=== PATIENT | male | born 1965 | race Caucasian/White ===

== ENCOUNTER → 2020-06-03 09:38 | Outpatient (CLI) | payer OTHER, MEDICAID, SELFPAY ==
[2020-06-03 11:06] LABS: BUN Creatinine Ratio 26.3 (6-22); Blood Urea Nitrogen 20 mg/dL (9-20); Calcium 9.7 mg/dL (8.4-10.2); Carbon Dioxide 31 mmol/L (22-32); Chloride 100 mmol/L (98-107); Estimated Glomerular Filt Rate > 60.0 mL/min (>60); Glucose 101 mg/dL (70-100); HEMOLYSIS < 15 (0-50); Potassium 4.2 mmol/L (3.4-5.1); Sodium 138 mmol/L (137-145)
== END ==
PROVIDERS: Referring Provider Registered Nurse; Visit Provider Registered Nurse
DX: I25.10 Atherosclerotic heart disease of native coronary artery without angina pectoris (principal); Z95.5 Presence of coronary angioplasty implant and graft; Z95.810 Presence of automatic (implantable) cardiac defibrillator; I48.91 Unspecified atrial fibrillation; I25.5 Ischemic cardiomyopathy
CPT/HCPCS: 36415; 80048

== ENCOUNTER → 2021-12-18 07:59 | Outpatient (CLI) | payer OTHER, MEDICAID, SELFPAY ==
[2021-12-18 10:07] LABS: BUN Creatinine Ratio 19.3 (6-22); Blood Urea Nitrogen 17 mg/dL (9-20); Calcium 9.1 mg/dL (8.4-10.2); Carbon Dioxide 25 mmol/L (22-32); Chloride 101 mmol/L (98-107); Cholesterol 160 mg/dL (140-199); Estimated Glomerular Filt Rate > 60 mL/min (>60); Glucose 111 mg/dL (70-100); HDL Cholesterol 38 mg/dL (40-60); HEMOLYSIS < 15 (0-50); LDL Cholesterol Calculated 90 mg/dL (<100); Potassium 4.5 mmol/L (3.4-5.1); Sodium 139 mmol/L (137-145); Triglycerides 162 mg/dL (35-150)
[2021-12-18 10:26] LABS: Free T4, Direct Thyroxine 1.15 ng/dL (0.78-2.19)
[2021-12-18 10:39] LABS: Thyroid Stimulating Hormone 1.69 uIU/mL (0.47-4.68)
== END ==
PROVIDERS: Referring Provider Nurse Practitioner Family; Visit Provider Nurse Practitioner Family
DX: I48.91 Unspecified atrial fibrillation (principal); I25.10 Atherosclerotic heart disease of native coronary artery without angina pectoris; E78.5 Hyperlipidemia, unspecified
CPT/HCPCS: 36415; 80048; 80061; 83735; 84439; 84443

== ENCOUNTER → 2022-04-27 08:11 | Outpatient (CLI) | payer OTHER, MEDICAID, SELFPAY ==
[2022-04-27 09:09] LABS: Blood Urea Nitrogen 10 mg/dL (9-20); Carbon Dioxide 25 mmol/L (22-32); Chloride 102 mmol/L (98-107); Estimated Glomerular Filt Rate > 60 mL/min (>60); Glucose 164 mg/dL (70-100); HEMOLYSIS < 15 (0-50); Magnesium 2.2 mg/dL (1.6-2.3); Potassium 4.3 mmol/L (3.4-5.1); Sodium 136 mmol/L (137-145)
== END ==
PROVIDERS: Referring Provider Physician Assistant Medical; Visit Provider Physician Assistant Medical
DX: I48.19 Other persistent atrial fibrillation (principal)
CPT/HCPCS: 36415; 80048; 83735

== ENCOUNTER 2022-10-01 01:13 | Emergency (ER) | payer OTHER, MEDICAID, SELFPAY ==
[2022-10-01 01:25] VITALS: BP 146/94; PULSE 65; RESP 18; TEMP 36.6; O2SAT 96; BMI 37.5
--- NOTE | 2022-10-01 01:34 | ED.GENADULT ---
HPI - General Adult General Chief complaint: Abdominal Pain Stated complaint: ABD PAIN Time Seen by Provider: 10/01/22 01:26 Source: patient Mode of arrival: Ambulatory History of Present Illness HPI narrative: Patient is a 49-year-old male. He does have history of prostate issues. He is on medication for this. He states he is had abdominal discomfort Off and on for the past couple weeks however for the past 4 hours he is had increasing discomfort, states he feels like he needs to have a bowel movement but is unable to. Also feels like he is having problems urinating. No vomiting but is having nausea. No fevers. No chest pain or shortness of breath. Pain is on the right side of his abdomen. Related Data Previous Rx's Medication Instructions Recorded atorvastatin 10 mg tablet (Lipitor) 10 mg PO HS #30 tabs 11/02/12 ketorolac 10 mg tablet 10 mg PO TID PRN pain 5 days #15 10/01/22 tabs Allergies Allergy/AdvReac Type Severity Reaction Status Date / Time No Known Drug Allergies Allergy Verified 10/01/22 05:16 Review of Systems Constitutional Constitutional: Reports system reviewed and no additional complaints, except as documented Cardiovascular Cardiovascular: Reports system reviewed and no additional complaints, except as documented Respiratory Respiratory: Reports system reviewed and no additional complaints, except as documented Gastrointestinal Gastrointestinal: Reports system reviewed and no additional complaints, except as documented Genitourinary Genitourinary: Reports system reviewed and no additional complaints, except as documented Integumentary/Breasts Skin/Breast: Reports system reviewed and no additional complaints, except as documented Patient History Social History Smoking Status: Never smoker Smoking Status: Never smoker alcohol intake frequency: holidays/special occasions only Substance Use Type: marijuana Exam Initial Vital Signs Initial Vital Signs: Vital Signs Temperature 98 F 10/01/22 01:25 Pulse Rate 65 10/01/22 01:25 Respiratory Rate 18 10/01/22 01:25 Blood Pressure 146/94 H 10/01/22 01:25 Pulse Oximetry 96 10/01/22 01:25 Oxygen Delivery Method Room Air 10/01/22 01:25 Const General: cooperative and No ill appearing HENMT Head: normal to inspection and normocephalic Resp Effort & Inspection: normal respiratory effort Cardio Rate: regular rate GI Inspection: normal to inspection and non-distended Palpation: soft, No firm and tender Skin General: no rashes or lesions noted Neuro General: patient alert, patient awake and moves all extremities Course Orders Ordered: ED Orders 10/01/22 01:59 CT abdomen pelvis w con Stat 10/01/22 02:02 Complete Blood Count AUTO DIFF Stat Comprehensive Metabolic Panel Stat Lipase Stat Discontinued Medications Ketorolac Tromethamine (Ketorolac 30 Mg/Ml Vial) 30 mg IV NOW ONE Stop: 10/01/22 04:45 Last Admin: 10/01/22 04:50 Dose: 30 mg Documented By: KALLIE Vital Signs Vital signs: Vital Signs - 8 hr 10/01/22 01:25 Temperature 98 F Pulse Rate 65 Respiratory Rate 18 Blood Pressure 146/94 H Pulse Oximetry 96 Oxygen Delivery Method Room Air Medical Decision Making Lab Data Lab results reviewed: Yes I reviewed the patient's lab results. 10/01/22 02:02 10/01/22 02:02 Labs: Lab Results 10/01/22 10/01/22 Range/Units 02:02 02:02 WBC 10.8 (4.5-11.0) X10^3/uL RBC 5.08 (4.5-5.9) X10^6/uL Hgb 14.3 (13.5-17.5) g/dL Hct 42.2 (41-53) % MCV 83.2 (80-100) fL MCH 28.2 (26-34) PG MCHC 33.9 (30-36) % RDW 15.1 H (11.6-14.8) % Plt Count 226 (150-400) X10^3/uL Neut % (Auto) 70.6 (50-75) % Lymph % (Auto) 17.8 L (25-40) % [place] % (Auto) 5.6 (3-14) % Eos % (Auto) 3.9 (2-4) % Baso % (Auto) 2.1 H (0-2) % Neut # (Auto) 7600 H (3130-1205) /uL Lymph # (Auto) 1900 (9205-7384) /uL [place] # (Auto) 600 (0-900) /uL Eos # (Auto) 400 (0-450) /uL Baso # (Auto) 200 H (0-100) /uL Sodium 138 (137-145) mmol/L Potassium 3.8 (3.4-5.1) mmol/L Chloride 105 (98-107) mmol/L Carbon Dioxide 24 (22-32) mmol/L BUN 22 H (9-20) mg/dL Creatinine 0.79 (0.66-1.25) mg/dL Estimated GFR > 60 (>60) mL/min BUN/Creatinine Ratio 27.8 H (6-22) Glucose 137 H (70-100) mg/dL Calcium 9.0 (8.4-10.2) mg/dL Total Bilirubin 0.5 (0.2-1.3) mg/dL AST 31 (17-59) IU/L ALT 31 (<50) IU/L Alkaline Phosphatase 110 (38-126) U/L Total Protein 7.1 (6.3-8.2) g/dL Albumin 4.1 (3.5-5.0) g/dL Globulin 3.0 (1.7-4.1) g/dL Albumin/Globulin Ratio 1.4 (1.0-2.8) Lipase 44 (23-300) U/L Urine Dip Bedside Urine Glucose Negative Bedside Urine Bilirubin + 1 Bedside Urine Ketone +/- 5 Urine Specific [place] 1.030 Bedside Urine Occult Blood +++ Bedside Urine pH 5.5 Bedside Urine Protein + 30 Bedside Urine Urobilinogen - Negative Bedside Urine Nitrite - Negative Bedside Urine Leukocytes - Negative Esterase Point of care testing: Urine Dip Bedside Urine Glucose Negative Bedside Urine Bilirubin + 1 Bedside Urine Ketone +/- 5 Urine Specific [place] 1.030 Bedside Urine Occult Blood +++ Bedside Urine pH 5.5 Bedside Urine Protein + 30 Bedside Urine Urobilinogen - Negative Bedside Urine Nitrite - Negative Bedside Urine Leukocytes - Negative Esterase Imaging Data CT scan - abdomen/pelvis: Radiologist's Impression: 7 mm obstructing calculus right UVJ with mild hydronephrosis on the right 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 Lymphoproliferative disorder can not be excluded therefore follow-up as advised MDM Narrative Medical decision making narrative: Patient states he feels much better after the Toradol. His kidney functions unremarkable. His urinalysis has blood but no other signs of infection. He is not retaining urine. CT scan shows right-sided 7 mm stone which does correspond to the side where he is having his discomfort. 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 There is no indication for emergent surgical consultation. He is already on a alpha kala because of his prostate issues. Will send home with nausea medication and pain medication. He does have a urologist that he has been in contact with and has an appointment scheduled but then does not for several weeks. Will discharge patient home with return precautions. He expressed understanding and agreement. Discharge Plan Departure Patient Disposition: Home Clinical Impression: Kidney stone on right side, Abdominal pain Instructions: Kidney Stones -- Adult, DI for Abdominal Pain-Adult Activity Restrictions/Additional Instructions: I recommend that you contact your urologist for follow-up. Continue to take all of your current medications as directed. I also recommend that you follow-up with your primary doctor. Take the medication you were given prescription for this evening as directed. Return to the emergency department for new or worsening symptoms. Prescriptions: New ketorolac 10 mg tablet 10 mg PO TID PRN (Reason: pain) 5 Days Qty: 15 0RF No Action atorvastatin [Lipitor] 10 MG tablet 10 mg PO HS Qty: 30 5RF Stand Alone Forms: Patient Portal/API
--- NOTE | 2022-10-01 01:59 | DI.CT.S_ITS ---
PROCEDURE: CT ABDOMEN PELVIS W CON INDICATIONS: Generalized abdominal pain TECHNIQUE: After the administration of oral and IV contrast, axial sections were acquired from the lung bases to the pubic symphysis. Coronal and sagittal reformats were performed. For radiation dose reduction, the following was used: automated exposure control, adjustment of mA and/or kV according to patient size. COMPARISON: [facility], , [place] ABDOMEN, 04/09/1999, 13:31. FINDINGS: Image quality: Excellent. Lung bases: Unremarkable. Small hiatal hernia. Heart: Mild cardiomegaly. There is a cardiac pacemaker. ABDOMEN: Liver: Normal in size. Mild hepatic steatosis. Gallbladder: Unremarkable. Biliary ducts: Unremarkable. Pancreas: Unremarkable. Spleen: Unremarkable. Adrenal Glands: Unremarkable. Kidneys and Ureters: There is mild right hydronephrosis and hydroureter ureter with periureteral stranding. A 7 mm stone is present at the right ureterovesical junction demonstrating CT density 958 HU. Stomach and Bowel: Stomach, small bowel loops, and colon are unremarkable. Normal appendix. Peritoneum: There is mesenteric stranding and numerous small mesenteric lymph nodes consistent with mesenteric panniculitis/adenitis. No abnormal intraperitoneal fluid. No free air. Ventral Wall: No hernia. Abdominal Nodes: No retroperitoneal or mesenteric adenopathy by size criteria. Vessels: Aorta and inferior vena cava are normal in size. PELVIS: Pelvic Organs: Unremarkable. Bladder: Bladder is contracted. There is a 7 mm stone of the right UVJ. Pelvic Nodes: No enlarged lymph nodes. Miscellaneous: No inguinal hernias are seen. Bones: Unremarkable. IMPRESSION: 1. A 7 mm obstructive stone at the right UVJ causing mild right hydronephrosis and hydroureter with periureteral stranding. The stone may be just passed into the urinary bladder. 2. Mesenteric panniculitis/adenitis. 3. Small hiatal hernia. No significant discrepancy with the shift mechanic radiology preliminary report. Dictated by: Dell Banks M.D. on 10/01/2022 at 7:58 Approved by: Dell Banks M.D. on 10/01/2022 at 8:13
[2022-10-01 02:19] LABS: Alanine Aminotransferase 31 IU/L (<50); Albumin 4.1 g/dL (3.5-5.0); Albumin Globulin Ratio 1.4 (1.0-2.8); Alkaline Phosphatase 110 U/L (38-126); Aspartate Aminotransferase 31 IU/L (17-59); BUN Creatinine Ratio 27.8 (6-22); Bilirubin Total 0.5 mg/dL (0.2-1.3); Blood Urea Nitrogen 22 mg/dL (9-20); Carbon Dioxide 24 mmol/L (22-32); Chloride 105 mmol/L (98-107); Estimated Glomerular Filt Rate > 60 mL/min (>60); Glucose 137 mg/dL (70-100); HEMOLYSIS < 15 (0-50); Lipase 44 U/L (23-300); Potassium 3.8 mmol/L (3.4-5.1); Sodium 138 mmol/L (137-145); Total Protein 7.1 g/dL (6.3-8.2)
[2022-10-01 02:21] LABS: Add Manual Diff / Slide Review NO; Basophils Absolute Auto 200 /uL (0-100); Basophils Percent Auto 2.1 % (0-2); Eosinophils Absolute Auto 400 /uL (0-450); Eosinophils Percent Auto 3.9 % (2-4); Hematocrit 42.2 % (41-53); Hemoglobin 14.3 g/dL (13.5-17.5); Lymphocytes Absolute Auto 1900 /uL (1100-4500); Lymphocytes Percent Auto 17.8 % (25-40); Mean Corpuscular HGB Conc 33.9 % (30-36); Mean Corpuscular Hemoglobin 28.2 PG (26-34); Mean Corpuscular Volume 83.2 fL (80-100); Monocytes Absolute Auto 600 /uL (0-900); Monocytes Percent Auto 5.6 % (3-14); Neutrophils Absolute Auto 7600 /uL (1500-7000); Neutrophils Percent Auto 70.6 % (50-75); Platelet Count 226 X10^3/uL (150-400); Red Blood Cell Count 5.08 X10^6/uL (4.5-5.9); Red Cell Distribution Width 15.1 % (11.6-14.8); White Blood Cell Count 10.8 X10^3/uL (4.5-11.0)
[2022-10-01] MEDS: KETOROLAC 30 MG/ML VIAL IV (04:50)
[2022-10-01 06:06] VITALS: BP 118/74; RESP 20; TEMP 36.6; O2SAT 95
[2022-10-01] MEDS: ONDANSETRON 4 MG ODT PREPACK 1 BOTTLE MISC (06:07)
[2022-10-01] MEDS: HYDROCODONE/ACET 5/325 PREPACK 1 BOTTLE MISC (06:07)
== END 2022-10-01 06:11 | disposition home or self-care (01) ==
PROVIDERS: Emergency Provider Emergency Medicine
DX: N20.0 Calculus of kidney (principal); R10.9 Unspecified abdominal pain
CPT/HCPCS: 36415; 51798; 74177; 80053; 81003; 83690; 85025; 96374; 99284; J1885; Q9967